=== PATIENT | male | born 1990 | race Hispanic/Latino ===

== ENCOUNTER 2022-10-25 18:24 | Emergency (ER) | payer SELFPAY ==
[~2022-10-25] VITALS: Ht 157.5 cm; Wt 54.0 kg
[2022-10-25 18:31] VITALS: BP 149/92
[2022-10-25 18:45] VITALS: BP 149/93
[2022-10-25 19:00] VITALS: BP 134/84
[2022-10-25 19:15] VITALS: BP 141/89
[2022-10-25 19:42] VITALS: BP 141/89
== END 2022-10-25 19:51 | DRG 914 ==
LOC: ED 18:24
DX: S65.011A Laceration of ulnar artery at wrist and hand level of right arm, initial encounter (principal); W26.8XXA Contact with other sharp object(s), not elsewhere classified, initial encounter; Y92.89 Other specified places as the place of occurrence of the external cause; Y99.0 Civilian activity done for income or pay